=== PATIENT | male | born 1970 | race African-American/Black ===

== ENCOUNTER 2023-10-29 20:40 | Emergency (ER) | payer OTHER, SELFPAY ==
--- NOTE | ~2023-10-29 | XR_ITS ---
EXAMINATION: XR chest 2V DATE: 10/29/2023 21:47 INDICATION: Chest pain. TECHNIQUE: Frontal and lateral views of the chest were obtained on 3 radiographs. COMPARISON: None. FINDINGS: A calcified left lung nodule and calcified left hilar lymph nodes are consistent with old g ranulomatous disease. No pleural effusion or pneumothorax. The heart size is normal. IMPRESSION: 1. No acute cardiopulmonary disease. Reviewed, dictated and finalized at location E. OR SYSTEMS PROGRAMMER
[2023-10-29 20:50] VITALS: BP 196/106; PULSE 94; RESP 15; TEMP 36.6; O2SAT 96
--- NOTE | 2023-10-29 20:50 | ECG_ITS ---
Measurements Intervals [place] Rate: 98 P: 34 FL: 132 QRS: -58 QRSD: 85 T: 116 QT: 352 QTc: 449 Interpretive Statements SINUS RHYTHM POSSIBLE LEFT ATRIAL ENLARGEMENT [-0.1mV P WAVE IN V1/V2] LEFT ANTERIOR FASCICULAR BLOCK [QRS AXIS <= -45, QR IN I, RS IN II] LEFT VENTRICULAR HYPERTROPHY AND ST-T CHANGE [VOLTAGE CRITERIA PLUS ST/T ABNORMALITY] POSSIBLE ANTERIOR MYOCARDIAL INFARCTION , OF INDETERMINATE AGE [30 ms Q WAVE IN V3/V4, OR R < 0.2 mV IN V4] ABNORMAL ECG NO PREVIOUS ECG AVAILABLE FOR COMPARISON Electronically Signed On 10-30-2023 14:38:44 CROP SUPERVISOR by Darren Vergara M.D.
[2023-10-29 21:26] LABS: Basophils Percent Auto 0.3 % (0.2-1.2); Eosinophils Absolute Auto 0.4 K/mm3 (0-0.3); Eosinophils Percent Auto 3.8 % (0-4.4); Hematocrit 47.9 % (42.0-52.0); Hemoglobin 15.3 g/dL (14.0-18.0); Immature Granulocyte Absolute 0.02 K/mm3 (0.00-0.031); Immature Granulocyte Percent A 0.2 % (0-0.5); Lymphocytes Absolute Auto 3.06 K/mm3 (0.9-3.2); Mean Corpuscular HGB Conc 31.9 g/dl (32-36); Mean Corpuscular Hemoglobin 30.2 pg (26-34); Mean Corpuscular Volume 94.7 fl (80-100); Mean Platelet Volume 10.7 fl (7.4-10.4); Monocytes Absolute Auto 0.9 K/mm3 (0.1-0.6); Monocytes Percent Auto 8.9 % (2.6-8.5); Neutrophils Absolute Auto 5.8 K/mm3 (1.3-6.7); Neutrophils Percent Auto 56.8 % (45.5-73.1); Platelet Count Result 219 k/mm3 (150-375); Red Blood Count 5.06 M/mm3 (4.6-6.20); Red Cell Distribution Width 13.3 % (11.5-14.5); White Blood Count 10.2 K/mm3 (4.5-10.0)
[2023-10-29 21:38] LABS: Alanine Aminotransferase 34 U/L (6-50); Alkaline Phosphatase 61 U/L (38-126); Anion Gap 3 mmol/L (8-16); Aspartate Amino Transferase 39 U/L (17-59); Bilirubin,Total 0.6 mg/dL (0.2-1.3); Blood Urea Nitrogen 13 mg/dL (9-20); Calcium 9.1 mg/dL (8.4-10.2); Carbon Dioxide 33 mmol/L (22-30); Chloride 99 mmol/L (98-107); Estimated CRCL calculation 73 ml/min; Estimated Glomerular Filt Rate > 60; Glucose 153 mg/dL (65-110); Lipase 32 U/L (23-300); Potassium 3.9 mmol/L (3.4-5.0); Sodium 135 mmol/L (137-145)
[2023-10-29 21:40] LABS: Prothrombin Time 13.2 Seconds (11.1-14.7)
[2023-10-29 21:49] LABS: Partial Thromboplastin Time 28.1 SECONDS (22.3-36.8); Troponin I 0.025 ng/mL (0.000-0.034)
[2023-10-30 05:40] VITALS: BP 198/138; PULSE 88; RESP 16; O2SAT 99
[2023-10-30 05:48] VITALS: RESP 23
[2023-10-30] MEDS: ASPIRIN 81 MG CHEWABLE TABLET 324 MG PO (06:04)
--- NOTE | 2023-10-30 06:12 | ECG_ITS ---
Measurements Intervals [place] Rate: 72 P: 40 AL: 136 QRS: -60 QRSD: 80 T: 126 QT: 380 QTc: 417 Interpretive Statements SINUS RHYTHM POSSIBLE LEFT ATRIAL ENLARGEMENT [-0.1mV P-WAVE IN V1/V2] LEFT ANTERIOR FASCICULAR BLOCK [QRS AXIS <= -45, QR IN I, RS IN II] LEFT VENTRICULAR HYPERTROPHY AND ST-T CHANGE [VOLTAGE CRITERIA PLUS ST/T ABNORMALITY] POSSIBLE ANTERIOR MYOCARDIAL INFARCTION , OF INDETERMINATE AGE [30 ms Q WAVE IN V3/V4, OR R < 0.2 mV IN V4] ABNORMAL ECG COMPARED TO ECG 10/29/2023 20:46:56 NO SIGNIFICANT CHANGES Electronically Signed On 10-30-2023 14:42:44 BOARD STACKER by Darren Vergara M.D.
--- NOTE | 2023-10-30 07:35 | ED.GENADULT ---
HPI - General Adult General Chief complaint: Recheck/Abnormal Lab/Rx Stated complaint: leg cramps and arm Time Seen by Provider: 10/30/23 06:57 History of Present Illness HPI narrative: 53-year-old male presented to the ED for evaluation of arm cramping. Patient is a long-distance dairy truck driver. Patient does live in his [place]. Patient denies any prior history of PE, DVT or NC. Patient states he was having some cramping in his left arm and presented for evaluation. Patient reports he is supposed to be taking losartan for his blood pressure but has not taken in approximately 3 months. At time of evaluation patient denies any chest pain shortness of breath denies any arm or leg cramping. Patient was unsure of his dose of losartan. Related Data Allergies Allergy/AdvReac Type Severity Reaction Status Date / Time No Known Allergies Allergy Verified 10/29/23 20:49 Review of Systems Review of Systems: All systems reviewed & are unremarkable except as noted in HPI and below Exam Narrative: APPEARANCE: Well appearing, no pain, no distress, well-nourished. HEAD: normocephalic, atraumatic. EYES: PERRLA/EOMI, conjunctivae clear. NOSE: Normal no drainage EARS:TMS clear with good light reflex. THROAT: Pharynx clear, no exudate. NECK: Supple. No adenopathy, no masses. RESPIRATORY: Airway patent, respirations nonlabored. Clear to auscultation bilaterally, no rales, rhonchi, wheezing. CARDIOVASCULAR: Regular rate and rhythm without murmurs rubs or gallops. ABDOMINAL: Soft, nontender, nondistended, normal bowel sounds MUSCULOSKELETAL: Moves all extremities. Strength/ROM intact, No edema, No calf tenderness. NEURO: Alert. Cranial nerves II through XII intact. Grossly intact SKIN: Warm, dry. Normal Color Course Vital Signs Vital signs: Vital Signs Temperature 97.9 F 10/29/23 20:50 Pulse Rate 94 10/29/23 20:50 Respiratory Rate 15 10/29/23 20:50 Blood Pressure 196/106 H 10/29/23 20:50 Pulse Oximetry 96 10/29/23 20:50 Temperature 97.6 F 10/30/23 09:00 Pulse Rate 82 10/30/23 09:00 Respiratory Rate 20 10/30/23 09:00 Blood Pressure 157/67 H 10/30/23 09:00 Pulse Oximetry 96 10/30/23 09:00 Medical Decision Making MDM Narrative Medical decision making narrative: 53-year-old male presenting to the emergency department for evaluation arm cramping. Patient is afebrile but does have a minor leukocytosis of 10.2 and a stable hemoglobin of 15.3, no acute abnormalities on his CMP and patient had negative serial troponins. Chest x-ray shows no acute cardiopulmonary disease. The patient's blood pressure did improve with treatment in the emergency department. Patient was advised to restart his losartan. All questions concerns were addressed and patient was comfortable plan for discharge and close follow-up Differential Diagnosis Differential Diagnosis: Hypertension, angina, pulmonary embolism, pneumonia, COVID, RSV, influenza, pneumothorax Vital Signs Vital Signs: Vital Signs Temperature 97.9 F 10/29/23 20:50 Pulse Rate 94 10/29/23 20:50 Respiratory Rate 15 10/29/23 20:50 Blood Pressure 196/106 H 10/29/23 20:50 Pulse Oximetry 96 10/29/23 20:50 Temperature 97.6 F 10/30/23 09:00 Pulse Rate 82 10/30/23 09:00 Respiratory Rate 20 10/30/23 09:00 Blood Pressure 157/67 H 10/30/23 09:00 Pulse Oximetry 96 10/30/23 09:00 Lab Data Lab results reviewed: Yes I reviewed the patient's lab results. 10/29/23 20:55 10/29/23 20:55 Labs: Lab Results 10/29/23 10/30/23 10/30/23 Range/Units 20:55 06:01 06:01 WBC 10.2 H (4.5-10.0) K/mm3 RBC 5.06 (4.6-6.20) M/mm3 Hgb 15.3 (14.0-18.0) g/dL Hct 47.9 (42.0-52.0) % MCV 94.7 (80-100) fl MCH 30.2 (26-34) pg MCHC 31.9 L (32-36) g/dl RDW 13.3 (11.5-14.5) % Plt Count 219 (150-375) k/mm3 MPV 10.7 H (7.4-10.4) fl Immature Gran % (Auto) 0.2 (
[2023-10-30] MEDS: SODIUM CHLORIDE 0.9% IV 1,000 ML 999 ML IV CONT (07:46)
[2023-10-30] MEDS: hydrALAZINE HCL 20 MG/ML VIAL 10 MG IV PUSH (07:47)
[2023-10-30 07:52] VITALS: BP 162/136; PULSE 87; RESP 18; TEMP 36.4; O2SAT 96
[2023-10-30 09:00] VITALS: BP 157/67; PULSE 82; RESP 20; TEMP 36.4; O2SAT 96
== END 2023-10-30 09:34 | disposition home or self-care (01) ==
LOC: ANHED 10-30 08:53
PROVIDERS: Emergency Medicine; Emergency Provider Emergency Medicine
DX: R25.2 Cramp and spasm (principal); I10 Essential (primary) hypertension; Z20.822 Contact with and (suspected) exposure to COVID-19
CPT/HCPCS: 36415; 71046; 80053; 83690; 84484; 85025; 85610; 85730; 93005; 96361; 96374; 99284; A9270; J0360; J7030